=== PATIENT | male | born 1945 | race Caucasian/White ===

== ENCOUNTER → 2016-10-31 | Day surgery (SDC) | payer MEDICARE ==
[~2016-10-31] MED LIST: ACTOS PO; ACTOS30 MG PO; ADALATCC PO; ALLOPURINOL PO; ALLOPURINOL300 MG PO; BACTRIM DS TABL1 TAB PO; BENICAR HCT 40-1 TAB PO; CARVEDILOL12.5 MG PO; COREG PO; DAKIN'S MODIF1000 ML EXT; DAKINS TOP; FELDENE20 MG PO; FINASTERIDE5 MG PO; FISH OIL EC 1,1 EAC1; GLUCOPHAGE XR500 MG PO; GLUCOPHAGE500 MG PO; GLUCOTROL PO; GLUCOTROL XL10 MG PO; HYZAAR1 TAB 100- PO; LASIX20 MG PO; LISINOPRIL-HCTZ1 T15 PO; LOSARTAN/HCTZ PO; MOBIC15 MG PO; NIFEDICAL PO; PERCOCET PO; PERCOCET5/325 PO; PROSCAR5 MG PO; TETRACYCLINE PO; VYTORIN 10/40 T1 TAB PO; XARELTO15 MG PO; ZESTORETIC 20-1 EAC1 PO; ZESTORETIC 20/21 TAB PO; ZOCOR PO; ZOCOR80 MG PO; ZYRTEC10 M1 PO
--- NOTE | ~2016-10-31 | OR ---
Unit #: [id number] #: [id number] Patient: TROY RODRIGUEZ [id number] [address] [place], [place] [address] [id number] MR#: [id number] NAME: TROY RODRIGUEZ ROOM: Date of Procedure: 10/31/2016 Admission Date: 10/31/2016 Surgeon: Maurice Brewster M.D. : 1945 Attending Physician: Maurice Brewster M.D. Primary Care Physician: Maurice Chau M.D. OPERATIVE REPORT PREOPERATIVE DIAGNOSES Severe balanitis, phimosis, and entrapped penis. POSTOPERATIVE DIAGNOSES Severe balanitis, phimosis, and entrapped penis. PROCEDURES PERFORMED Circumcision with extensive lysis of adhesions to the glans penis and Templeton catheter placement. ANESTHESIA General with local supplementation. INDICATIONS FOR PROCEDURE This 70-year-old man has had such severe cracking and bleeding from his severe phimosis that he has had to discontinue Xarelto for his atrial fibrillation. 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 DESCRIPTION OF PROCEDURE The patient was given preoperative antibiotics and satisfactory general anesthesia. In the supine position, routine prep and drape were performed. The demarcation externally of the disease was marked with ink. I used Allis to grasp the diseased foreskin bilaterally and performed a dorsal slit up to the inked alannah, but this was inadequate to reveal the head of the penis. I carefully probed and performed a similar incision ventrally. This was not sufficient to retract the foreskin, but I was able to identify the head of the penis within digitally and visually. It was necessary to next circumferentially excise the outer layer of the foreskin with a blade following the inked guide. I then very cautiously used cautery to divide sufficiently to expose the glans. There was a dense adhesion covering most of it. With retraction and Metzenbaum scissors, blunt and largely sharp dissection were used to reveal nearly all of the glans and ventrally a slight rim of tissue, but mostly the shaft skin was removed right up to the glans. Limited hemostasis was required after the full specimen was excised with cautery and submitted. The skin was then aligned in four quadrants right up to the glans and the interstices closed with interrupted 3-0 chromic. There appears to be reasonable projection of the glans without an immediate tendency to Unit #: [id number] #: [id number] Patient: TROY RODRIGUEZ. I elected to place a 16 Templeton catheter, and after that, applied triple antibiotic ointment liberally to the glans penis followed by Xeroform and dry dressing secured to the catheter. The patient will be seen for catheter removal early next week; otherwise, routine wound instructions. Dictated by... Luis Armando Martinez/mame TD: 10/31/2016 16:48 JOB #: [id number] CC: Maurice Chau M.D. OPERATIVE REPORT Page 1 of 1 X Maurice Brewster MD X PROCEDURE OPERATIVE NOTE
--- NOTE | ~2016-10-31 | EKG ---
PATIENT: TROY RODRIGUEZ UNIT #: [id number] Ventricular Rate: 82 BPM Atrial Rate: 54 BPM QRS Duration: 88 ms Q-T Interval: 398 ms QTC Calculation(Bezet): 464 ms Calculated R [place]: -10 degrees Calculated T [place]: 13 degrees Diagnosis Line: Atrial fibrillation Diagnosis Line: Nonspecific ST and T wave abnormality Diagnosis Line: Prolonged QT Diagnosis Line: Abnormal ECG Diagnosis Line: When compared with ECG of 23-DEC-2010 19:50, Diagnosis Line: Atrial fibrillation has replaced Sinus rhythm Diagnosis Line: Confirmed by TRAMAINE REEVES MD ([id number]) on 10/31/2016 Diagnosis Line: 5:25:30 PM INTERPRETING MD: LEANDRO TONY
[2016-10-31 09:52] LABS: BUN/CREATININE RATIO 19.28; CALCIUM SERUM 9.3 mg/dL (8.4-10.2); CREATININE SERUM 1.4 mg/dL (0.6-1.4); GLOM FILT RATE Estimated 49.9 mL/min (>60); POTASSIUM 3.4 mmol/L (3.5-5.1)
== END | disposition home or self-care (01) ==
LOC: CSUR 08:56
PROVIDERS: Urology
DX: N48.0 Leukoplakia of penis (principal); N47.1 Phimosis; I50.9 Heart failure, unspecified; E11.9 Type 2 diabetes mellitus without complications; N40.0 Benign prostatic hyperplasia without lower urinary tract symptoms; Z88.2 Allergy status to sulfonamides; Z79.84 Long term (current) use of oral hypoglycemic drugs; Z79.899 Other long term (current) drug therapy
CPT/HCPCS: 80048; 82947; 88304; 93005; J0690; J2405; J3010